=== PATIENT | male | born 1940 | race Caucasian/White ===

== ENCOUNTER 2016-12-16 22:00 | Observation (INO) | payer MEDICARE ==
[~2016-12-16] VITALS: Ht 180.3 cm; Wt 85.9 kg
[2016-12-16 22:00] VITALS: BP 137/95; PULSE 106; RESP 18; O2SAT 96
[2016-12-16 22:25] LABS: BASOPHILS % (AUTO) 0.4 % (0-3); EOSINOPHILS % (AUTO) 7.2 % (0-5); MONOCYTES % (AUTO) 12.1 % (4-12); Mean Corpuscular Hemoglobin 35.7 pg (27.0-35.0); Mean Corpuscular Volume 102.1 fL (81-100); NEUTROPHILS % (AUTO) 41.3 % (40-74); Platelet Count 171 bil/L (150-400)
--- NOTE | 2016-12-16 22:28 | ED.REPORT ---
HPI-Stroke / CVA Dec 16, 2016 ED Provider: Cade Hung MD The patient is a 76 year old male with a history of atrial fibrillation s/p recent ablation (11/24/16) on Coumadin who presents to the ED via EMS accompanied by his after an episode of expressive aphasia onset just before 20:00 this evening, while [place] dock. Associated symptoms include facial droop and slurred speech. The patient was able to continue ambulating normally. He denies focal weakness, numbness, paresthesias, chest pain, palpitations, or other symptoms. The patient's symptoms resolved after approximately three minutes. EMS found the patient with a BP of 120/90, a pulse of 90, and a respiration rate of 12. Just after being cleared by medics to come to the ED via POV, the patient had another similar episode of expressive aphasia and he opted to be transported. The patient presents symptom-free. Nursing Notes Stated Complaint: FACIAL DROOP RESOLVED Chief Complaint: Stroke Symptoms Nursing Notes Reviewed: Yes Scheduled Brimonidine Tartrate (Brimonidine 0.2% Oph Soln) 5 Ml Drops 1 DROP BOTH_EYES BID (Reported) Cholecalciferol (Vitamin D3) (Vitamin D3) 2,000 Unit Capsule 2,000 UNIT PO Q2DAY (Reported) Latanoprost (Xalatan) 2.5 Ml Drops 1 DROP BOTH_EYES HS (Reported) Omeprazole (Omeprazole) 40 Mg Capsule.dr 40 MG PO DAILY (Reported) Sotalol HCl (Sotalol) 80 Mg Tablet 80 MG PO HS (Reported) Sotalol HCl (Sotalol) 120 Mg Tablet 120 MG PO DAILY (Reported) Warfarin Sodium (Warfarin Sodium) 2.5 Mg Tablet 2.5 MG PO DAILY (Reported) General Time Seen by Provider: 22:03 Chief Complaint Unable to speak Hx Obtained From: Patient, Spouse Arrived By: Ambulance Time last known well Symptoms onset just before 20:00 Sudden in Onset?: Yes Symptom Duration: 1 - 15 minutes Progression Since Onset: Resolved Severity: Current: No pain currently Severity: Maximum: No pain Context: Immunizations Unknown Recent Healthcare: Recent doctor visit Risk Factors NIH Stroke Scale Level of Consciousness: Alert and responsive (0) Ask Month & Age: Both questions right (0) Open/Close Eyes/Hand Dowel Inspector: Performs both tasks (0) Horizontal EO Movements: None (0) Visual Bonds: No visual loss (0) Facial Palsy: Normal symmetry (0) Right Arm Motor Drift (10s): No drift 10 sec (0) Left Arm Motor Drift (10s): No drift 10 sec (0) Right Leg Motor Drift (5s): No drift 5 sec (0) Left Leg Motor Drift (5s): No drift 5 sec (0) Limb Ataxia FNF/Heel-Mitchell: No ataxia (0) Sensation (Arms/Legs/Face): No sensory loss (0) Language Aphasia: No aphasia, normal (0) Dysarthria: No dysarthria, normal (0) Extinction/Inattention: No exctinct/inattent (0) NIHSS Score: 0 Time NIHSS Performed: 22:19 Date NIHSS Performed: Dec 16, 2016 Past Medical History Past Medical History Atrial fibrillation s/p ablation (11/24/16) Past Surgical History None reported Smoking History Unknown if Ever Smoker Social History Other Social History: Good social support, Ambulatory Status Independent Review of Systems Review of Systems Note: + Facial droop - Paresthesias Constitutional: Denies: Fever Respiratory: Denies: Non-productive cough, Shortness of breath Cardiovascular: Denies: Chest pain, Palpitations GI: Denies: Diarrhea, Vomiting Neurologic: Reports: Slurred speech, Unable to speak, Denies: Focal weakness, Numbness, Problem walking Complete sys rev & neg: except as marked. Physical Exam Initial Vital Signs Vital Signs (First) Date Time Temp Pulse Resp B/P Pulse Ox O2 Delivery O2 Flow Rate FiO2 12/16/16 22:00 36.4 106 18 137/95 96 Room Air Initial VS: Reviewed ENT: Conjunctiva normal, No scleral icterus Skin: Warm, Dry, No cyanosis Psychiatric: Mood/affect normal, Behavior normal, Normal thought content General/Constitutional: Awake, Alert, No acute distress Head / Eyes: Atraumatic, Normocephalic, PERRL, EOMI Acuity / Tonometry: Positive: Visual acuity abnormal L (Impaired at baseline) Neck: Supple, Full range of motion Respiratory / Chest: Breath sounds NL, Breath sounds = bilat, No respiratory distress Cardiovascular: Heart rate NL, Heart sounds NL Heart Rate / Rhythm: Positive: Irreg irregular rhythm Neurologic: Oriented X3, Speech NL, No motor deficits, No sensory deficits, CN II - XII intact Interpretation & Diagnostics MR BRAIN: CONCLUSION: Atrophy with chronic small vessel ischemic changes. No acute infarction or other acute intracranial abnormality. Minimal chronic sinusitis. MRA BRAIN: CONCLUSION: Negative. No hemodynamically significant stenosis, aneurysm or intraluminal thrombus identified. MRA NECK: CONCLUSION: Negative. Critical Test acknowledged at 12/17/2016 1:26:56 AM PDT. Verbal report given to Dr. Hung at 12/17/2016 1:40:00 AM PDT Report transmitted to the ED by radiologist Ac Ahuja M.D. at 12/17/2016 - 1:40:06 AM PDT Lab Results Interpretation Result Diagram: 12/16/16 22012/16/16 2200 Test 12/16/16 01:20 12/16/16 22:00 Urine Color Yellow (YELLOW) Urine Appearance Clear (CLEAR,HAZY) Urine pH 5.5 (5.0-8.0) Urine Specific [place] 1.024 (1.003-1.035) Urine Protein Negativemg/dL (NEG,TRACE) Urine Glucose (UA) Negativemg/dL (NEGATIVE) Urine Ketones Negativemg/dL (NEGATIVE) Urine Occult Blood Negative (NEGATIVE) Urine Nitrite Negative (NEGATIVE) Urine Bilirubin Negative (NEGATIVE) Urine Urobilinogen Normalmg/dL (NORMAL) Urine Leukocyte Esterase Negative (NEGATIVE) Urine RBC 0-2/hpf (0-2) Urine WBC 0-5/hpf (0-5) Urine Epithelial Cells Occasional/hpf (NONE-MOD) Urine Crystals None seen (NONE SEEN) Urine Bacteria None/hpf (NONE-FEW) Urine Hyaline Casts None/lpf (NONE) Urine Granular Casts None seen (NONE SEEN) Urine Waxy Casts None seen (NONE SEEN) Urine Red Blood Cell Casts None seen (NONE SEEN) Urine White Blood Cell Casts None seen (NONE SEEN) Urine Mucus None seen (None Seen) Urine Trichomonas None seen (NONE SEEN) Urine Yeast None (NONE SEEN) Urinalysis Comment None Urine Culture Reflexed Not indicated White Blood Count 5.0th/mm3 (3.8-10.1) Red Blood Count 3.89mil/mm3 (4.40-5.80) Hemoglobin 13.9g/dL (13.8-17.2) Hematocrit 39.7% (41.0-50.0) Mean Corpuscular Volume 102.1fL (81-100) Mean Corpuscular Hemoglobin 35.7pg (27.0-35.0) Mean Corpuscular Hemoglobin Concent 35.0% (32.0-37.0) Red Cell Distribution Width 13.7% (12.3-15.4) Platelet Count 171bil/L (150-400) Neutrophils (%) (Auto) 41.3% (40-74) Lymphocytes (%) (Auto) 39.0% (14-46) Monocytes (%) (Auto) 12.1% (4-12) Eosinophils (%) (Auto) 7.2% (0-5) Basophils (%) (Auto) 0.4% (0-3) Prothrombin Time 26.5sec (8.1-12.5) Prothromb Time International Ratio 2.43ratio Activated Partial Thromboplast Time 37.4sec (22.8-33.0) Sodium Level 140mEq/L (134-144) Potassium Level 4.2mEq/L (3.5-5.2) Chloride Level 101mEq/L (97-108) Carbon Dioxide Level 20mmol/L (18-29) Blood Urea Nitrogen 21mg/dL (8-27) Creatinine 1.05mg/dL (0.76-1.27) Estimat Glomerular Filtration Rate 73mL/min (>59) Glucose Level 97mg/dL (60-99) Calcium Level 9.3mg/dL (8.5-10.1) Total Bilirubin 0.4mg/dL (0.0-1.2) Aspartate Amino Transf (AST/SGOT) 44U/L (0-50) Alanine Aminotransferase (ALT/SGPT) 39U/L (0-44) Alkaline Phosphatase 65U/L (25-160) Troponin T 0.010ug/L (0.0-0.011) Total Protein 7.9g/dL (6.4-8.4) Albumin 4.3g/dL (3.4-5.0) Triglycerides Level 171mg/dL (0-149) Cholesterol Level 222mg/dL (100-199) LDL Cholesterol, Calculated 127.800mg/dL (0-99) VLDL Cholesterol 34.200mg/dL HDL Cholesterol 60mg/dL (>39) Cholesterol/HDL Ratio 3.70 (0.0-4.4) Alcohols 75mg/dL (0-10) ECG Interpretation ECG Interpretation: Pacemaker spikes or artifacts Atrial flutter with predominant 2:1 AV block rate 101 Low voltage, precordial leads Abnormal R-wave progression, early transition Borderline T abnormalities, diffuse leads Time: 22:28 Interpreted by: ED physician X-Ray Chest Interpretation Chest Xray Interpretation: Bibasilar atelectasis. Otherwise normal. View: Portable, 1 view Interpretation / Wet Read by: Wet read ED physician CT Head Interpretation CONCLUSION: Mild atrophy with minimal chronic small vessel ischemic changes. Ethmoid and frontal sinus disease. No acute intracranial abnormality identified. Critical Test acknowledged at 12/16/2016 10:31:01 PM PDT. Verbal report given to Dr. Hung at 12/16/2016 - 10:14:37 PM PDT Report transmitted to the ED by radiologist Ac Ahuja M.D. at 12/16/16 - 10:16:56 PM PDT Study: Head CT no contrast Interpretation / Wet Read by: Interpret - Radiologist Re-Eval/Medical Decision Med Decision/Clinical Course 76-year-old in chronic A. fib on Coumadin, and adequately anticoagulated, presents after two stereotypical episodes of expressive aphasia and facial droop, without sensory symptoms, and without murmur like symptoms. Both very brief, three minutes or so at most. Pulses completely resolved. CT is negative. MRA is negative. Suspect this is a platelet related issue and in a terminal small vessel in the posterior brain. Begun with aspirin admitted now for completion of his neuro evaluation. Re-Evaluation/Progress #1: Time of Eval: 22:32 Re-Evaluation/Progress Note: Discussed with patient CT results and plan for MRI. Re-Evaluation/Progress #2: Time of Eval: 02:22 Patient Status: Condition improved Re-Evaluation/Progress Note: Discussed with patient lab, CT, x-ray, and MRI results, diagnosis, and plan for admit. Patient agrees with plan for care and all questions were addressed. 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 I, Dr. Hung, personally performed the history, physical exam, and medical decision-making; I reviewed and confirmed the accuracy of the information in the transcribed note. Signed by: Leah Gotti, 12/17/2016, 03:25 Cade Hung MD Dec 16, 2016 22:27 PATTY MIDDLETON Dec 16, 2016 22:34
[2016-12-16 22:30] VITALS: BP 131/96; PULSE 97; RESP 18; O2SAT 97
[2016-12-16 22:44] LABS: INR 2.43 ratio
[2016-12-16 23:00] VITALS: BP 136/93; PULSE 97; RESP 18; O2SAT 97
[2016-12-16 23:12] LABS: TROPONIN T 0.01 ug/L (0.0-0.011)
[2016-12-17] VITALS: BP 135/104; PULSE 96; RESP 18; O2SAT 97
[2016-12-17] MEDS ORDERED: BRIM5DRO9 BOTH_EYES (01:17)
[2016-12-17] MEDS ORDERED: SOTA120T PO (01:17)
[2016-12-17] MEDS ORDERED: WARF2.5T82 PO (01:17)
[2016-12-17] MEDS ORDERED: OMEP40CA36 PO (01:17)
[2016-12-17] MEDS ORDERED: LATA2.5D5 BOTH_EYES (01:17)
[2016-12-17] MEDS ORDERED: CHOL200047 PO (01:17)
[2016-12-17] MEDS ORDERED: SOTA80TA PO (01:17)
[2016-12-17 01:34] LABS: APPEARANCE,URINE CLEAR (CLEAR,HAZY); COLOR,URINE YELLOW (YELLOW); OCCULT BLOOD,URINE NEGATIVE (NEGATIVE); PH,URINE 5.5 (5.0-8.0); UROBILINOGEN,URINE NORMAL (NORMAL)
[2016-12-17 02:59] VITALS: BP 145/102; PULSE 98; O2SAT 97
[2016-12-17] MEDS ORDERED: hydrALAZINE 20 mg/mL Inj IVPUSH PRN (03:10)
[2016-12-17] MEDS ORDERED: Labetalol 5 mg/mL 20 mL Inj IVPUSH PRN (03:10)
[2016-12-17] MEDS ORDERED: Ondansetron 2 mg/mL 2 mL Inj IVPUSH PRN (03:10)
[2016-12-17 04:24] VITALS: BP 148/113; PULSE 102; RESP 18; O2SAT 98
--- NOTE | 2016-12-17 04:28 | PCM.HPMED ---
Subjective Date of Service Dec 17, 2016 Primary Provider: Admitting Physician: Estela Iyer DO Primary Care Physician: Best Attending Physician: Estela Iyer DO Admit Status: From the Emergency Department Chief Complaint: two brief episodes of difficulty talking with right sided facial droop History of Present Illness: The patient is a 76-year-old man with past medical history remarkable for atrial fibrillation/flutter treated with recent ablation on 11/24/2016 currently on warfarin therapy who presents with 2 brief transient episodes of difficulty speaking with associated right facial droop. The patient states that he was putting a cover on his [place] on [place] and had just walked up the dock passed the stairs when he attempted to speak to his family on the deck. The patient states that he struggled to come up with the words and walked around the side of the house in through was side door to the sink. The patient states that within a few minutes his family came in to talk with them and they noticed his difficulty slurring words that were inappropriate made no sense and an associated right sided facial droop noticed at the corner of the mouth. The patient within minutes slowly regained the ability to speak appropriately however still slurring his words until at 5 minutes the entire episode had resolved. The patient's family called EMS who arrived and were in process of discussing transport through either the ambulance or POV when the patient had another brief episode described as 3 minutes of difficulty speaking described in the same manner as above. The patient denies any trouble with walking or using his upper extremities during these events. The patient has never had any issues like this in the past. The patient has not started any new medications, except for an increase of his warfarin dose from 1.25 mg daily to 2.5 mg daily, due to a decrease in his INR last week down to 1.3. As well as an increase in his sotalol reportedly increased from 80 mg in the day to 120 mg in the day. However the patient has been on both sotalol and warfarin for an extended period of time prior to these recent increases. The patient did admit to being outside [place] day mostly in the shade and denies any sensation of nausea, diaphoresis, lightheadedness prior to the 2 episodes. The patient did have 2 gin drinks today which is about his baseline of alcohol consumption. Review of Systems: A comprehensive review of systems was completed and all are negative except for what is included in the history of present illness. 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 Shavon Lopez Left knee meniscal repair Right total knee arthroplasty Family History Mother had breast cancer and lived to be healthy into 90s Father reportedly had a stroke in his late 70s Maternal grandfather had a heart attack in his 70s Social History Occupation: retired Hx Alcohol Use: Yes Alcoholic Drinks Per Day: 2 gin drinks per day Hx Substance Use: No Hx Tobacco Use: Yes Smoking Status: Former Smoker Years of Smokin Living Arrangement: with Family Exam Vital Signs Vital Sign - Last Date Time Temp Pulse Resp B/P Pulse Ox O2 Delivery O2 Flow Rate FiO2 12/17/16 02:59 98 145/102 97 Room Air 12/17/16 00:00 18 12/16/16 22:00 36.4 Intake and Output 12/16/16 12/16/16 12/17/16 Cumulative From/Thru 15:00 23:00 07:00 12/16/16 22:00 - 12/17/16 03:10 Intake Total 300 ml 300 ml Balance 300 ml 300 ml Intake Oral 300 ml 300 ml # Voids 1 1 Exam General: Late middle-aged gentleman sitting on a hospital bed in no acute distress. Well-developed, well-nourished, appropriately interactive Eyes: Anisorocia left pupil greater than right, extraocular motion intact, anicteric sclera, noninjected conjunctiva no lid lag HENT: Normocephalic, atraumatic. Moist mucous membranes without central cyanosis. Posterior Oropharynx free of erythema and cobble stoning Neck: Supple with full range of motion. No jugular venous distension. No bruits. No lymphadenopathy or thyromegaly. Cardiovascular: Irregularly irregular rate and rhythm, tachycardic with no murmurs, rubs, or gallops appreciated Pulmonary: Clear auscultation bilaterally without wheezing or rhonchi, Normal respiratory effort with no use of accessory muscles. Abdomen: Normoactive bowel sounds, nondistended, nontender, no organomegaly Extremities: No clubbing, cyanosis, or edema appreciated, pulses intact bilaterally at radial and dorsalis pedis Skin: Normal temperature, turgor, and texture; no rash, ulcers, or subcutaneous nodules appreciated. Neurological: Cranial nerves II through XII intact, sensation intact in upper and lower extremities bilaterally, no dysdiadochokinesia noted in upper or lower extremities, no pronator drift noted, negative Romberg, strength intact bilaterally in upper and lower extremities, Ambulates without assistance Psychiatric: Normal mood and affect. Alert and oriented to person, place, and time. : No Lopez in place Lab and Diagnostics Result Diagram: 12/16/16219912/16/162199 X-Rays, CTs and MRIs Head and neck MRI/MRA Preliminary overnight [facility] read MR BRAIN: CONCLUSION: Atrophy with chronic small vessel ischemic changes. No acute infarction or other acute intracranial abnormality. Minimal chronic sinusitis. MRA BRAIN: CONCLUSION: Negative. No hemodynamically significant stenosis, aneurysm or intraluminal thrombus identified. MRA NECK: CONCLUSION: Negative. Critical Test acknowledged at 12/17/2016 1:26:56 AM PDT. Verbal report given to Dr. Hung at 12/17/2016 1:40:00 AM PDT Report transmitted to the ED by dionisio Ahuja M.D. at 12/17/2016 - 1:40:[address] no contrast preliminary [place] read CONCLUSION: Mild atrophy with minimal chronic small vessel ischemic changes. Ethmoid and frontal sinus disease. No acute intracranial abnormality identified. Critical Test acknowledged at 12/16/2016 10:31:01 PM PDT. Verbal report given to Dr. Hung at 12/16/2016 - 10:14:37 PM PDT Report transmitted to the ED by dionisio Ahuja M.D. at 12/16/16 - 10:16:56 PM PDT 12-lead ECG ECG Interpretation: irregularly irregular narrow complex QRS consistent with Atrial fibrillation/flutter reported at predominant 2:1 AV block rate 101, with low voltage in the precordial leads and abnormal R-wave progression appearing as a left axis deviation and reported borderline T abnormalities in all leads Assessment & Plan The patient is a 76-year-old man with past medical history remarkable for atrial fibrillation/flutter treated with recent ablation on 11/24/2016 currently on warfarin therapy who presents with 2 brief transient episodes of difficulty speaking with associated right facial droop. # Transient ischemic attack, acute, POA - 2 independent events by more than 30 minutes subjectively described difficulty with word finding and dysarthria combined with possible right- sided lower facial droop most notably at the corner of the mouth and lasting less than 5 minutes consistent with possible TIA - Initial assessment in the emergency department gave an NIH stroke scale of 0 with reported complete resolution of symptoms - CT without contrast performed in ED was negative for hemorrhagic phenomenon, MRI/MRA was negative for acute cerebrovascular accident without hemodynamically significant stenosis, aneurysm or intraluminal thrombus identified. - The patient does have risk factors for embolic phenomenon with atrial fibrillation however the patient is therapeutic on warfarin at this time. - The patient does report that last week his INR was subtherapeutic last week however it is unlikely that a clot remained intact for over a week prior to being dislodged and subsequently lysed prior to causing visible changes on MRI - Differential diagnosis includes possible dehydration due to being outside all day with alcohol ingestion given the patient's serum alcohol was at 75 almost 2 hours after initial events occurred, however the patient and denies signs of heat exhaustion or increased alcohol consumption compared to a typical day - Other less likely differential diagnosis includes seizure or atypical migraine - The patient received a full dose aspirin in the emergency department - INR appears to be therapeutic at 2.43 - No noted electrolyte abnormalities with sodium of 140 potassium 4.2 chloride of 101 and carbon dioxide is 20 BUN 21 and creatinine 1.05, glucose is in the normal range and A1c is pending, calcium is 9.3 - Lipid panel ordered and pending, hgba1c ordered and pending - B12 and folate panel ordered and pending given mild macrocytosis anemia - Stroke protocol ordered with nursing to perform swallow eval as well as frequent neuro checks overnight - ABCD2 score is 3 with age greater than 60, elevated BP with DBP>90, and isolated speech disturbance gives an increased risk of recurrent stroke within 2 days - Goal blood pressure between 160-180 systolic with labetalol when necessary available for hypertensive episodes, consider initiation of antihypertensive and statin therapy later today, no antiplatelet therapy required given anticoagulation on Warfarin. - ECHO with bubble study ordered # Chronic Atrial fibrillation/flutter - Patient describes an Ablation procedure for atrial fibrillation performed on November 24, [address] Shavon Lopez - The patient has been on chronic sotalol and warfarin therapy - The patient has been wearing the monitor since the procedure and is described as having his sotalol increased less than a week after the procedure - The patient reports being subtherapeutic on his INR as recently as last week however his dose was increased to 2.5 mg daily from 1.25 mg daily and is currently therapeutic with an INR of 2.4 - Continue outpatient sotalol 120 mg in the a.m. and 80 mg in the p.m. - Continue outpatient warfarin therapy 2.5 mg daily - AM team to consult cardiology given persistent atrial fibrillation despite ablation, possible f/u as outpatient # Chronic Gastroesophageal reflux disease - Patient takes omeprazole daily - Convert to pantoprazole 20 mg daily # Chronic bilateral open angle Glaucoma/ocular hypertension - Continue outpatient eyedrops - Brimonidine Tartrate 1 drop both eyes twice a day - Latanoprost 1 drop both eyes at bedtime DVT prophylaxis: Anticoagulated on therapeutic warfarin GI prophylaxis pantoprazole 20 mg daily CODE STATUS Full The patient is admitted to observation status given presenting symptoms, likely diagnosis, possible complications, and required treatments likely length of stay is less than 2 midnights. Pain Evaluation: Adequate Pain Control GI Prophylaxis: Proton Pump Inhibitor VTE Prophylaxis Indicated: Meets Criteria for Anticoag Therapy VTE Prophylaxis: Theraputic Anticoag with Warfarin Resuscitation Status: CPR: Attempt Resuscitation Attending Statement The patient was seen and examined together with house staff on 12/17/2016 and I agree with the history, exam and plan as outlined in the note above. Chris Levine DO Dec 17, 2016 04:28 Estela Iyer DO Dec 17, 2016 05:48
--- NOTE | 2016-12-17 05:19 | NUR ---
Admit/Neuro Pt has been alert and oriented x 4. No slurring of speech, facial droop or tongue deviation. 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 No s/sx of aspiration from swallow screen. Lower extremity strength for age. Denies chest pain, sob, n/v or abd discomfort. CVA education/booklet provided. Will continue to monitor.
[2016-12-17 06:07] VITALS: PULSE 104
--- NOTE | 2016-12-17 06:08 | DRSVH ---
PROCEDURE: CT BRAIN (TPA) ([id number]) INDICATIONS: 76 year-old male with facial droop and trouble speaking. TECHNIQUE: Noncontrast 4.5 mm thick angled axial sections acquired from the foramen magnum to the vertex, with c oronal reformats. COMPARISON: None. FINDINGS: Preliminary interpretation rendered by [facility]. Image quality: Excellent. CSF spaces: Basal cisterns are patent. No extra-axial fluid collections. The ventricles are symmet radha in size and shape. Brain: No intracranial bleeds or masses. There are minimal periventricular white matter chronic sma ll vessel ischemic changes. There is patchy intracranial internal carotid artery atherosclerosis. Skull and face: Calvarium and visualized facial bones appear intact, without suspicious lesions. Sinuses: There is patchy ethmoid air cell fluid. Other visualized sinuses and mastoids are clear. IMPRESSION: No acute intracranial abnormalities. Minimal periventricular white matter chronic small v essel ischemic change. No significant discrepancy with preliminary [facility] report. This study fulfills neurological imaging criteria for inclusion or exclusion of acute stroke therapie s based on available published neurological guidelines. Dictated by: Leroy Steel M.D. on 12/17/2016 at 6:03 Approved by: Leroy Steel M.D. on 12/17/2016 at 6:06
--- NOTE | 2016-12-17 07:24 | DRSVH ---
PROCEDURE: X-RAY CHEST ONE VIEW, PORTABLE ([id number]) INDICATIONS: 76 year-old male with facial droop. TECHNIQUE: One view of the chest was acquired. COMPARISON: None. FINDINGS: Surgical changes and devices: None. Lungs and pleura: No pleural effusions or pneumothorax. Lungs are clear. Mediastinum: Mediastinal contours appear normal. Heart size is normal. Bones and chest wall: No suspicious bony lesions. Overlying soft tissues appear unremarkable. IMPRESSION: No acute cardiopulmonary disease. Dictated by: Leroy Steel M.D. on 12/17/2016 at 7:22 Approved by: Leroy Steel M.D. on 12/17/2016 at 7:22
[2016-12-17] MEDS ORDERED: Pantoprazole 40 mg ER24 Tablet PO SCH (07:30)
[2016-12-17 08:00] VITALS: PULSE 105
[2016-12-17 08:25] VITALS: BP 142/98; PULSE 106; RESP 24; O2SAT 98
[2016-12-17] MEDS ORDERED: Brimonidine 0.2% 5 mL Ophthalmic Solution BOTH_EYES SCH (08:30)
--- NOTE | 2016-12-17 08:36 | DRSVH ---
PROCEDURE: MRI STROKE PROTOCOL ([id number]) Pre- and post-contrast brain MRI, non-contrast brain MR angiogram, pre- and postcontrast neck MR pavan ogram INDICATIONS: posterior circ stroke/tia TECHNIQUE: Brain: Noncontrast axial T1 spin echo, axial T2 fast spin echo, sagittal and axial FLAIR, coronal T2 fast spin echo, axial gradient echo, axial diffusion and ADC through the brain. After the administr ation of contrast, axial 3D VIBE of the cranial vasculature and brain. Brain MRA: Non-contrast 3-D time of flight MR angiogram, with multiple rcydync-lnqdrjqqu-ldruplnuvq (MIP) reformats performed. Neck MRA: Axial and sagittal TruFISP through the neck. Coronal dynamic MR angiogram during administ ration of contrast in the arterial and venous phases, with 3-dimenstional mppnwmt-tbequodpw-dwkolsuid n (MIP) reformats constructed from subtraction images. COMPARISON: [facility], CT, BRAIN ([facility]), 12/16/2016, 22:08. FINDINGS: Image quality: Excellent. BRAIN: CSF spaces: Ventricles are normal in size and shape. Basal cisterns are patent. No extra-axial flu id collections. Brain: No intracranial bleeds or mass effects. Mild diffuse cerebral volume loss. Small region of g radient echo signal abnormality within the right cerebellar hemisphere. Farrell-white matter interface i s normal. Diffusion weighted images show no acute ischemic insults. Brainstem appears normal. Norm al intravascular flow voids are present. No abnormal intracranial enhancement. Skull and face: Calvarial marrow signal is normal. Orbits appear normal. Sinuses: Mastoids are clear. Mild bilateral sphenoid ethmoid and maxillary sinus mucosal thickening. Mild right frontal sinus mucosal thickening. BRAIN MR ANGIOGRAM: Anterior circulation: Intracranial internal carotid arteries are normal in size and enhancement. Th e flow within the paired anterior cerebral arteries is normal and symmetric. The flow within the mid dle cerebral arteries is normal and symmetric. The anterior communicating artery is seen. No stenos es, occlusions, or aneurysms. Posterior circulation: The visualized portions of the vertebral arteries demonstrate normal caliber, and join to form a normal appearing basilar artery. origin of the right posterior cerebral ar olga. The flow within the posterior cerebral arteries is normal and symmetric. No stenoses, occlusio ns, or aneurysms. NECK MR ANGIOGRAM: Carotids: Great vessels demonstrate a conventional anatomy as they arise from the aortic arch. The origins of the common carotid arteries appear patent. The calibers and courses of both common caroti d arteries are normal. The bifurcation regions appear normal bilaterally. The internal carotid jennifer charlene demonstrate normal course and caliber. Posterior circulation: Right vertebral artery origin is patent. Left vertebral artery origin is not s een. More superior portions of both vertebral arteries demonstrate normal course and caliber, and yuniel n to form a normal appearing basilar artery. Miscellaneous: Subclavian arteries appear patent. Pre-contrast images through the neck show no soft tissue abnormalities. IMPRESSION: BRAIN MRI: 1. No acute process. 2. Focal calcification versus cavernous hemangioma within the right cerebellar hemisphere. 3. No recent infarct. BRAIN MR ANGIOGRAM: Negative cerebral MR angiography. NECK MR ANGIOGRAM: 1. Patent bilateral internal carotid arteries. 2. Suboptimally visualized left vertebral artery origin. Vertebral arteries are otherwise patent. Concordant with preliminary interpretation. The estimate of stenosis included in the report of the imaging study was calculated using the NASCET method Dictated by: Radha Odell M.D. on 12/17/2016 at 7:29 Approved by: Radha Odell M.D. on 12/17/2016 at 7:35
--- NOTE | 2016-12-17 12:53 | NUR ---
ABELINO explained and signed. Copy of ABELINO and Medicare self administered medication information given to pt.
[2016-12-17 13:21] LABS: INR 2.5 ratio
--- NOTE | 2016-12-17 14:05 | PCM.DIMED ---
Discharge Instructions Date of Service Dec 17, 2016 Dates of Hospitalization Dec 17, 2016 at 02:40 Discharge Diagnosis Discharge Diagnosis 1. TIA, resolved 2. Paroxysmal atrial fibrillation 3. Chronic anticoagulation on Coumadin, therapeutic Diet Discharge Diet: Low fat, Low Sodium, Heart Healthy Activity Discharge Activity: No restrictions Call your provider Call your provider for: Other Patient Instructions Patient Instructions Dr Lawson in one week Attending's Statement Call 911 or ER HERLINDA for neurologic symptoms including difficulty speaking, visual changes, facial droop, numbness or weakness of arms or legs. Karri Villagran MD Dec 17, 2016 14:05
[2016-12-17] MEDS ORDERED: LIP40 PO (14:07)
[2016-12-17] MEDS ORDERED: ASPI-973 PO (14:07)
--- NOTE | 2016-12-17 14:12 | PCM.DC.MED ---
Discharge Summary Date of Service Dec 17, 2016 Dates of Hospitalization Date of Hospital Admission Dec 17, 2016 at 02:40 Date of Discharge: Dec 17, 2016 Providers: Admitting Physician: Karri Villagran MD Primary Care Physician: Best Attending Physician: Karri Villagran MD Diagnosis at Time of Discharge Diagnosis at Time of Discharge 1. TIA, resolved 2. Paroxysmal atrial fibrillation 3. Chronic anticoagulation on Coumadin, therapeutic Consultations None Procedures XRay, CTs & MRIs Head and neck MRI/MRA Preliminary overnight Nighthawk read MR BRAIN: CONCLUSION: Atrophy with chronic small vessel ischemic changes. No acute infarction or other acute intracranial abnormality. Minimal chronic sinusitis. MRA BRAIN: CONCLUSION: Negative. No hemodynamically significant stenosis, aneurysm or intraluminal thrombus identified. MRA NECK: CONCLUSION: Negative. Critical Test acknowledged at 12/17/2016 1:26:56 AM PDT. Verbal report given to Dr. Hung at 12/17/2016 1:40:00 AM PDT Report transmitted to the ED by dionisio Ahuja M.D. at 12/17/2016 - 1:40:[address] no contrast preliminary Nighthawk read CONCLUSION: Mild atrophy with minimal chronic small vessel ischemic changes. Ethmoid and frontal sinus disease. No acute intracranial abnormality identified. Critical Test acknowledged at 12/16/2016 10:31:01 PM PDT. Verbal report given to Dr. Hung at 12/16/2016 - 10:14:37 PM PDT Report transmitted to the ED by dionisio Ahuja M.D. at 12/16/16 - 10:16:56 PM PDT ECG 12 Lead ECG Interpretation: irregularly irregular narrow complex QRS consistent with Atrial fibrillation/flutter reported at predominant 2:1 AV block rate 101, with low voltage in the precordial leads and abnormal R-wave progression appearing as a left axis deviation and reported borderline T abnormalities in all leads Cardiac Echo Impression Pending Brief History The patient is a 76-year-old man with past medical history remarkable for atrial fibrillation/flutter treated with recent ablation on 11/24/2016 currently on warfarin therapy who presents with 2 brief transient episodes of difficulty speaking with associated right facial droop. The patient states that he was putting a cover on his boat on [place] and had just walked up the dock passed the stairs when he attempted to speak to his family on the deck. The patient states that he struggled to come up with the words and walked around the side of the house in through was side door to the sink. The patient states that within a few minutes his family came in to talk with them and they noticed his difficulty slurring words that were inappropriate made no sense and an associated right sided facial droop noticed at the corner of the mouth. The patient within minutes slowly regained the ability to speak appropriately however still slurring his words until at 5 minutes the entire episode had resolved. The patient's family called EMS who arrived and were in process of discussing transport through either the ambulance or POV when the patient had another brief episode described as 3 minutes of difficulty speaking described in the same manner as above. The patient denies any trouble with walking or using his upper extremities during these events. The patient has never had any issues like this in the past. The patient has not started any new medications, except for an increase of his warfarin dose from 1.25 mg daily to 2.5 mg daily, due to a decrease in his INR last week down to 1.3. As well as an increase in his sotalol reportedly increased from 80 mg in the day to 120 mg in the day. However the patient has been on both sotalol and warfarin for an extended period of time prior to these recent increases. The patient did admit to being outside at the [place] all day mostly in the shade and denies any sensation of nausea, diaphoresis, lightheadedness prior to the 2 episodes. The patient did have 2 gin drinks today which is about his baseline of alcohol consumption. Hospital Course The patient is a 76-year-old man with past medical history remarkable for atrial fibrillation/flutter treated with recent ablation on 11/24/2016 currently on warfarin therapy who presents with 2 brief transient episodes of difficulty speaking with associated right facial droop. # Transient ischemic attack, acute, POA - 2 independent events by more than 30 minutes subjectively described difficulty with word finding and dysarthria combined with possible right- sided lower facial droop most notably at the corner of the mouth and lasting less than 5 minutes consistent with possible TIA - Initial assessment in the emergency department gave an NIH stroke scale of 0 with reported complete resolution of symptoms - CT without contrast performed in ED was negative for hemorrhagic phenomenon, MRI/MRA was negative for acute cerebrovascular accident without hemodynamically significant stenosis, aneurysm or intraluminal thrombus identified. - The patient does have risk factors for embolic phenomenon with atrial fibrillation however the patient is therapeutic on warfarin at this time. - The patient does report that last week his INR was subtherapeutic last week however it is unlikely that a clot remained intact for over a week prior to being dislodged and subsequently lysed prior to causing visible changes on MRI - Differential diagnosis includes possible dehydration due to being outside all day with alcohol ingestion given the patient's serum alcohol was at 75 almost 2 hours after initial events occurred, however the patient and denies signs of heat exhaustion or increased alcohol consumption compared to a typical day - Other less likely differential diagnosis includes seizure or atypical migraine - The patient received a full dose aspirin in the emergency department - INR appears to be therapeutic at 2.43 - No noted electrolyte abnormalities with sodium of 140 potassium 4.2 chloride of 101 and carbon dioxide is 20 BUN 21 and creatinine 1.05, glucose is in the normal range and A1c is pending, calcium is 9.3 - Lipid panel ordered and pending, hgba1c ordered and pending - B12 and folate panel ordered and pending given mild macrocytosis anemia - Stroke protocol ordered with nursing to perform swallow eval as well as frequent neuro checks overnight - ABCD2 score is 3 with age greater than 60, elevated BP with DBP>90, and isolated speech disturbance gives an increased risk of recurrent stroke within 2 days - Goal blood pressure between 160-180 systolic with labetalol when necessary available for hypertensive episodes, consider initiation of antihypertensive and statin therapy later today, no antiplatelet therapy required given anticoagulation on Warfarin. - ECHO with bubble study ordered # Chronic Atrial fibrillation/flutter - Patient describes an Ablation procedure for atrial fibrillation performed on November 24, [address] Shavon Lopez - The patient has been on chronic sotalol and warfarin therapy - The patient has been wearing the monitor since the procedure and is described as having his sotalol increased less than a week after the procedure - The patient reports being subtherapeutic on his INR as recently as last week however his dose was increased to 2.5 mg daily from 1.25 mg daily and is currently therapeutic with an INR of 2.4 - Continue outpatient sotalol 120 mg in the a.m. and 80 mg in the p.m. - Continue outpatient warfarin therapy 2.5 mg daily - AM team to consult cardiology given persistent atrial fibrillation despite ablation, possible f/u as outpatient # Chronic Gastroesophageal reflux disease - Patient takes omeprazole daily - Convert to pantoprazole 20 mg daily # Chronic bilateral open angle Glaucoma/ocular hypertension - Continue outpatient eyedrops - Brimonidine Tartrate 1 drop both eyes twice a day - Latanoprost 1 drop both eyes at bedtime DVT prophylaxis: Anticoagulated on therapeutic warfarin GI prophylaxis pantoprazole 20 mg daily CODE STATUS Full The patient is admitted to observation status given presenting symptoms, likely diagnosis, possible complications, and required treatments likely length of stay is less than 2 midnights. Hospital course. The patient was admitted for transient neurologic symptoms, specifically he had speech difficulties. These resolved prior to admission to the ED. The patient had a negative CT of the head and was admitted. His Coumadin was therapeutic INR was 2.3. He was observed had no further neurologic symptoms. The patient was subtherapeutic for the last 2 weeks and his Coumadin requiring a dose adjustment. He has no history of TIA. MRI was negative for stroke. MRA negative for cerebrovascular disease. Renal long discussion with he and his on the day of discharge with plans to minimize risk of stroke by optimizing his anticoagulation, and the aspirin for the next 2 weeks at 81 mg a day, close follow-up and urgent medical follow-up for recurrent neurologic symptoms. Exam Vital Signs (Last) Date Time Temp Pulse Resp B/P Pulse Ox O2 Delivery O2 Flow Rate FiO2 12/17/16 08:25 36.9 106 24 142/98 98 Room Air Exam Patient was seen and examined on the day of discharge Test 12/16/16 01:20 12/16/16 22:00 12/17/16 06:20 12/17/16 12:40 Urine Color Yellow (YELLOW) Urine Appearance Clear (CLEAR,HAZY) Urine pH 5.5 (5.0-8.0) Urine Specific Orma 1.024 (1.003-1.035) Urine Protein Negativemg/dL (NEG,TRACE) Urine Glucose (UA) Negativemg/dL (NEGATIVE) Urine Ketones Negativemg/dL (NEGATIVE) Urine Occult Blood Negative (NEGATIVE) Urine Nitrite Negative (NEGATIVE) Urine Bilirubin Negative (NEGATIVE) Urine Urobilinogen Normalmg/dL (NORMAL) Urine Leukocyte Esterase Negative (NEGATIVE) Urine RBC 0-2/hpf (0-2) Urine WBC 0-5/hpf (0-5) Urine Epithelial Cells Occasional/hpf (NONE-MOD) Urine Crystals None seen (NONE SEEN) Urine Bacteria None/hpf (NONE-FEW) Urine Hyaline Casts None/lpf (NONE) Urine Granular Casts None seen (NONE SEEN) Urine Waxy Casts None seen (NONE SEEN) Urine Red Blood Cell Casts None seen (NONE SEEN) Urine White Blood Cell Casts None seen (NONE SEEN) Urine Mucus None seen (None Seen) Urine Trichomonas None seen (NONE SEEN) Urine Yeast None (NONE SEEN) Urinalysis Comment None Urine Culture Reflexed Not indicated White Blood Count 5.0th/mm3 (3.8-10.1) Red Blood Count 3.89mil/mm3 (4.40-5.80) Hemoglobin 13.9g/dL (13.8-17.2) Hematocrit 39.7% (41.0-50.0) Mean Corpuscular Volume 102.1fL (81-100) Mean Corpuscular Hemoglobin 35.7pg (27.0-35.0) Mean Corpuscular Hemoglobin Concent 35.0% (32.0-37.0) Red Cell Distribution Width 13.7% (12.3-15.4) Platelet Count 171bil/L (150-400) Neutrophils (%) (Auto) 41.3% (40-74) Lymphocytes (%) (Auto) 39.0% (14-46) Monocytes (%) (Auto) 12.1% (4-12) Eosinophils (%) (Auto) 7.2% (0-5) Basophils (%) (Auto) 0.4% (0-3) Activated Partial Thromboplast Time 37.4sec (22.8-33.0) Sodium Level 140mEq/L (134-144) Potassium Level 4.2mEq/L (3.5-5.2) Chloride Level 101mEq/L (97-108) Carbon Dioxide Level 20mmol/L (18-29) Blood Urea Nitrogen 21mg/dL (8-27) Creatinine 1.05mg/dL (0.76-1.27) Estimat Glomerular Filtration Rate 73mL/min (>59) Glucose Level 97mg/dL (60-99) Calcium Level 9.3mg/dL (8.5-10.1) Total Bilirubin 0.4mg/dL (0.0-1.2) Aspartate Amino Transf (AST/SGOT) 44U/L (0-50) Alanine Aminotransferase (ALT/SGPT) 39U/L (0-44) Alkaline Phosphatase 65U/L (25-160) Troponin T 0.010ug/L (0.0-0.011) Total Protein 7.9g/dL (6.4-8.4) Albumin 4.3g/dL (3.4-5.0) Triglycerides Level 171mg/dL (0-149) Cholesterol Level 222mg/dL (100-199) LDL Cholesterol, Calculated 127.800mg/dL (0-99) VLDL Cholesterol 34.200mg/dL HDL Cholesterol 60mg/dL (>39) Cholesterol/HDL Ratio 3.70 (0.0-4.4) Alcohols 75mg/dL (0-10) Prothrombin Time 27.2sec (8.1-12.5) Prothromb Time International Ratio 2.50ratio Discharge Medications Discharge Medications Aspirin (Aspirin) 81 Mg Tablet 81 MG PO DAILY Prescribed by: KARRI VILLAGRAN MD Atorvastatin (Lipitor) 40 Mg Tablet 40 MG PO DAILY Prescribed by: KARRI VILLAGRAN MD Brimonidine Tartrate (Brimonidine 0.2% Oph Soln) 5 Ml Drops 1 DROP BOTH_EYES BID (Reported) Cholecalciferol (Vitamin D3) (Vitamin D3) 2,000 Unit Capsule 2,000 UNIT PO Q2DAY (Reported) Latanoprost (Xalatan) 2.5 Ml Drops 1 DROP BOTH_EYES HS (Reported) Omeprazole (Omeprazole) 40 Mg Capsule.dr 40 MG PO DAILY (Reported) Sotalol HCl (Sotalol) 80 Mg Tablet 80 MG PO HS (Reported) Sotalol HCl (Sotalol) 120 Mg Tablet 120 MG PO DAILY (Reported) Warfarin Sodium (Warfarin Sodium) 2.5 Mg Tablet 2.5 MG PO DAILY (Reported) Followup Plan Disposition: Home Discharge Diet: Low fat, Low Sodium, Heart Healthy Discharge Activity: No restrictions Patient Instructions Dr Lawson in one week Time spent 40 minutes Karri Villagran MD Dec 17, 2016 14:12
--- NOTE | 2016-12-17 15:40 | NUR ---
Discharge Patient discharged, accompanied by . Ambulated to vehicle with RN. All discharge instructions given to patient along with prescription for Lipitor. Patient verbalized all understanding. Discharge education handouts given regarding Lipitor and TIA. IV D/C'd, intact. Denied any other questions.
--- NOTE | 2016-12-17 16:17 | DRSVH ---
[facility] [address] [place] [address] Echocardiogram Report Name: WANDA HENLEY DStudy Date : 12/17/2016 Height: 71 in Hospital Exam Location: [facility] Weight: 189 lb Gender: Male BSA: 2.1 m2 : 1940 Age: 76 yrs BP: 148/113 mmHg Reason For Study: TIA Ordering Physician: Performed [facility] Interpretation Summary A secundum type atrial septal defect is present. The atrial septal defect is small. Doppler evidence suggests a left to right interatrial shunt. The right ventricle is mildly dilated. There is mild pulmonary hypertension. The right ventricular systolic pressure is estimated at 44 mmHg assuming a right atrial pressure of 8 mm Hg. There is mild concentric left ventricular hypertrophy. Left ventricular systolic function is normal. No other echocardiographic abnormalities seen. This patient has a small secundum ASD with small left to right shunt with associated mild PHT and RV enlargement. This could be a potential source for paradoxical emboli although other etiologies for the patients TIA are more likely. Procedure: A two-dimensional transthoracic echocardiogram with color flow and Doppler was performed. The study quality was technically adequate. There is no prior echocardiogram noted for this patient. The heart rate ranged between 105-107 bpm during the study. Left Ventricle: The left ventricle is normal in size, wall thickness, and systolic function without any focal wall motion abnormalities. There is mild concentric left ventricular hypertrophy. The ejection fraction is estimated to be 55-60%. Left ventricular systolic function is normal. Diastolic function could not be accurately assessed due to tachycardia. Right Ventricle: The right ventricle is mildly dilated. The right ventricular systolic function is normal. Atria: There is moderate biatrial enlargement. A secundum type atrial septal defect is present. The atrial septal defect is small. The thickening of interatrial septum suggests lipomatous hypertrophy. Doppler evidence suggests a left to right interatrial shunt. Mitral Valve: The mitral valve leaflets appear mildly thickened, but open well. There is mild to moderate mitral regurgitation. Aortic Valve: The aortic valve opens well. There is trace aortic regurgitation. Tricuspid Valve: The tricuspid valve leaflets are thin and pliable. There is mild tricuspid regurgitation. The right ventricular systolic pressure is estimated at 44 mmHg assuming a right atrial pressure of 8 mm Hg. There is mild pulmonary hypertension. Pulmonic Valve: The pulmonic valve is normal in structure and function. There is no pulmonic valvular regurgitation. Great Vessels: The aortic root is moderately dilated. The ascending aorta is at the upper limits of normal in size. The IVC is dilated (diameter is greater than 2.1 cm) yet it collapses greater than 50% with a sniff. This suggests a right atrial pressure of 8 mm Hg. Pericardium/ Pleura There is no pericardial effusion. There is no pleural effusion. MMode/2D Measurements & Calculations LVIDd: 4.9 cmLA dimension: 5.4 cm RA long axis: 6.3 cm LVOT diam: 2.3 cm LVIDs: 3.6 cm Ao root diam FS: 27.3 % LA A2 area: 34.4 cm RA area: 24.9 cm IVSd: 1.4 cm LA A4 area: 37.7 cm RA vol: 84.0 ml Aortic Jxn: 3.3 cm LVPWd: 1.0 cmLA length (vol) RA : 40.8 ml/m asc Aorta Diam RVDd major: 6.5 cm LA vol: 142.1 ml Ao Arch Diam (Prox LA vol index Trans): 3.5 cm IVC diam: 2.2 cm EDV(MOD-sp2) LV chakraborty. diameter/BSA LV sys. diameter/BSA RVD1 (basal) (cm/m^2): 2.4 (cm/m^2): 1.7 : 3.6 cm ESV(MOD-sp2) EF(MOD-sp2) RVD2 (mid) : 3.5 cm Doppler Measurements & Calculations Ao V2 max MV P1/2t TR max flaquita MV V2 mean : 68.2 cm/sec : 58.5 msec : 299.5 cm/sec : 37.1 cm/sec Ao max P.9 mmHg TR max PG MV mean PG Ao mean P.1 mmHg : 35.9 mmHg : 0.77 mmHg PA V2 max MV V2 VTI: 9.0 cm : 42.3 cm/sec PA mean PG : 0.35 mmHg PA Accel Time MV P1/2t max flaquita Ao V2 mean PA V2 mean : 49.4 cm/sec : 27.7 cm/sec Ao V2 VTI: 12.3 cm MVA(P1/2t): 3.8 cm2 Reading Physician:04:16 PM
--- NOTE | 2016-12-17 16:31 | NUR ---
Social Work Note: Initial Assessment/Discharge Data& Assessment: EMR reviewed. SW met with pt and pt at bedside to confirm discharge plan and assess for any unmet needs. Per pt is medically ready for discharge. MARINE role explained. Sergey Recio is a 76 year old male admitted on 12/17/2016 under observation for TIA. Per pt is medically ready to discharge home via POV. Pt lives in [place] with his spouse and is independent at baseline. Pt does not require any DME and does not have HH or SNF hx. Pt does not have LT insurance or VA benefits. Pt drives. Pt does have DPOA/Advance Directive paperwork completed. Pt to transport pt home. Pt and pt denies any other needs. No other discharge needs identified. Plan: Per pt is medically ready to discharge home via POV. Pt is independent in his room and at baseline. Pt and pt denies any other needs. No other discharge needs identified RYAN Archibald Addendum: 12/17/16 at 1634 by MICHELLE DIAMOND Amended: Links added.
== END 2016-12-17 15:40 | disposition home or self-care (01) ==
LOC: EDBD 22:00 → SED 22:00 → PCC 12-17 02:40
PROVIDERS: ADMIT Hospitalist; ATTEND Hospitalist
DX: R47.89 Other speech disturbances (principal); R29.810 Facial weakness; G45.9 Transient cerebral ischemic attack, unspecified; I48.0 Paroxysmal atrial fibrillation; K21.9 Gastro-esophageal reflux disease without esophagitis; H40.10X0 Unspecified open-angle glaucoma, stage unspecified; H40.053 Ocular hypertension, bilateral; M19.90 Unspecified osteoarthritis, unspecified site; Z87.891 Personal history of nicotine dependence; Z79.01 Long term (current) use of anticoagulants; Z79.82 Long term (current) use of aspirin
CPT/HCPCS: 36415; 70450; 70549; 70553; 71010; 80053; 80061; 81000; 82607; 82746; 83036; 84484; 85025; 85610; 85730; 93005; 99285; A9585; C8929; G0378; G0480